=== PATIENT | female | born 1975 | race Caucasian/White ===

== ENCOUNTER 2017-02-07 11:30 | Emergency (ER) | payer OTHER ==
[2017-02-07 12:03] VITALS: BP 128/74
--- NOTE | 2017-02-07 13:07 | UC ---
Back Pain HPI - HPI Summary HPI Summary: SLIPPED ON THE STAIRS THIS MORNING AND FELL DOWN 3 STEPS LANDING ON HER MID BACK. POSSIBLY HIT HER HEAD BUT NO LOC. NOW HAS BACK, SHOULDER, NECK PAIN AND ORTEZ. NO VISUAL DISTURBANCE. TOOK A FIORICET WITH NO HELP. HAD EMESIS X 1 ABOUT 20 MINUTES AFTER THE FALL. HAS SOME PHOTOPHOBIA. - History of Current Complaint Chief Complaint: UCHeadInjury Stated Complaint: FALL-POSS HIT HEAD HAS ORTEZ,LFT SHOULDER/BACK PAIN Time Seen by Provider: 02/07/17 12:46 Hx Obtained From: Patient, Family/Gluten Settling Tender - MOM Hx Last Menstrual Period: hasn't had since september had tubal Onset/Duration: Sudden Onset, Lasting Hours, Still Present Timing: Constant Severity Initially: Moderate Severity Currently: Moderate Pain Intensity: 5 Pain Scale Used: 0-10 Numeric Back Pain: Is Discrete @ Character: Aching, Spasmodic, Stiffness Aggravating: Movement Alleviating: Rest Associated Signs And Symptoms: Positive: Negative - Allergies/Home Medications Allergies/Adverse Reactions: Allergies Allergy/AdvReac Type Severity Reaction Status Date / Time Sulfa Drugs Allergy Severe Hives Verified 02/07/17 11:46 Azithromycin [From Zithromax] Allergy Intermediate Hives Verified 02/07/17 11:46 Ibuprofen AdvReac Intermediate See Comment Verified 02/07/17 11:46 Home Medications: Home Medications Certolizumab Pegol [Cimzia] 2 inj MONTHLY 02/07/17 [History Confirmed 02/07/17] Mercaptopurine TAB* [Purinethol TAB*] 1 tab DAILY 02/07/17 [History Confirmed ] Zolpidem CR (NF) [Ambien CR (NF)] 12.5 mg PO BEDTIME 02/07/17 [History Confirmed 02/07/17] PMH/Surg Hx/FS Hx/Imm Hx Endocrine History Of: Denies: Diabetes Cardiovascular History Of: Denies: Cardiac Disorders Respiratory History Of: Denies: Asthma - Surgical History Surgical History: Yes Surgery Procedure, Year, and Place: Hysterectomy (still has right tube and ovary ), Appendectomy, Bowel Resection, 07/29/14, [place], breast reduction, tubal ligation - Family History Known Family History: Positive: Diabetes, Other - CANCER - Social History Alcohol Use: Occasionally Substance Use Type: None Smoking Status (MU): Former Smoker Type: Cigarettes Amount Used/How Often: 1 PPD Length of Time of Smoking/Using Tobacco: 10 Years Have You Smoked in the Last Year: No When Did the Patient Quit Smoking/Using Tobacco: 2009 - Immunization History Most Recent Influenza Vaccination: MAY 2016 Most Recent Tetanus Shot: UTD Most Recent Pneumonia Vaccination: NONE Review of Systems Skin: Negative Respiratory: Negative Cardiovascular: Negative Gastrointestinal: Negative Musculoskeletal: Myalgia Neurological: Headache All Other Systems Reviewed And Are Negative: Yes Physical Exam Triage Information Reviewed: Yes Appearance: Well-Appearing, Well-Nourished, Pain Distress - MILD Vital Signs: Initial Vital Signs Temp 98.1 F 02/07/17 11:53 Pulse 75 02/07/17 11:53 Resp 16 02/07/17 11:53 BP 128/74 02/07/17 11:53 Pulse Ox 98 02/07/17 11:53 Eyes: Positive: Conjunctiva Clear ENT: Positive: Hearing grossly normal Neck: Positive: Supple Respiratory: Positive: No respiratory distress, No accessory muscle use Cardiovascular: Positive: Pulses Normal Abdomen Description: Positive: Soft Musculoskeletal: Positive: No Edema, ROM Limited @ - BACK Neurological: Positive: Alert Psychological: Positive: Normal Response To Family, Age Appropriate Behavior Skin: Negative: rashes Back Pain Course/Dx - Differential Dx/Diagnosis Provider Diagnoses: 1. ACUTE THORACIC BACK STRAIN. 2. HEAD INJURY Discharge - Discharge Plan Condition: Stable Disposition: HOME Prescriptions: Naproxen [Naproxen EC] 500 mg PO BID PRN #30 tab PRN Reason: Pain Patient Education Materials: Head Injury (ED), Thoracic Back Strain (ED) Referrals: Alma Foley [Primary Care Provider] - If Needed Additional Instructions: LIKELY MUSCULOSKELETAL PAIN FROM YOUR FALL. THIS KIND OF PAIN IS TYPICALLY AT IT 'S WORST IN THE FIRST FEW DAYS AFTER THE INJURY AND SHOULD IMPROVE OVER THE NEXT SEVERAL DAYS. REST, STRETCH, CONTINUE YOUR MUSCLE RELAXER PRESCRIBED. WILL GIVE PRESCRIPTION STRENGTH NAPROSYN. USE SPARINGLY GIVEN YOUR DIAGNOSIS OF CROHNS. POSSIBLE CONCUSSION - GO TO THE ER WITHOUT FAIL IF YOU DEVELOP UNEQUAL PUPILS, VISUAL DISTURBANCE, GAIT INSTABILITY, SPEECH DIFFICULTY, NAUSEA/VOMITING, WORSENING HEADACHE, DIZZINESS, CONFUSION, WEAKNESS OR ANY OTHER CONCERNING SYMPTOMS.
== END 2017-02-07 13:21 | disposition home or self-care (01) ==
LOC: UCCORT 11:30
DX: S29.012A Strain of muscle and tendon of back wall of thorax, initial encounter (principal); S09.90XA Unspecified injury of head, initial encounter; W10.9XXA Fall (on) (from) unspecified stairs and steps, initial encounter; Y92.9 Unspecified place or not applicable; Z87.891 Personal history of nicotine dependence; Z88.1 Allergy status to other antibiotic agents; Z88.2 Allergy status to sulfonamides; Z88.6 Allergy status to analgesic agent
CPT/HCPCS: 99212; G0463

== ENCOUNTER 2017-03-07 11:40 | Emergency (ER) | payer OTHER ==
[2017-03-07 12:55] VITALS: BP 121/87
[2017-03-07] MEDS ORDERED: Ondansetron ODT TAB* 4 MG PO ONE (13:16)
--- NOTE | 2017-03-07 13:16 | UC ---
Throat Pain/Nasal Misha HPI - HPI Summary HPI Summary: 41 yo female with sore throat/mackey and fever x 3 days nausea no v/d - History of Current Complaint Chief Complaint: UCRespiratory Stated Complaint: SORE THROAT,FEVER,COUGH Time Seen by Provider: 03/07/17 12:51 Hx Obtained From: Patient Hx Last Menstrual Period: hasn't had since september had tubal Onset/Duration: Gradual Onset, Lasting Days Severity: Moderate Pain Intensity: 5 Pain Scale Used: 0-10 Numeric Cough: None Associated Signs & Symptoms: Positive: Sinus Discomfort, Nasal Discharge, Fever - Allergies/Home Medications Allergies/Adverse Reactions: Allergies Allergy/AdvReac Type Severity Reaction Status Date / Time Sulfa Drugs Allergy Severe Hives Verified 03/07/17 12:48 Azithromycin [From Zithromax] Allergy Intermediate Hives Verified 03/07/17 12:48 Ibuprofen AdvReac Intermediate See Comment Verified 03/07/17 12:48 Home Medications: Home Medications Chlorpheniramine & Phenylephri [Sinus & Allergy PE Maximu] 1 tab PO ONCE PRN [History Confirmed 03/07/17] PMH/Surg Hx/FS Hx/Imm Hx Previously Healthy: Yes GI/ History: Other Other GI/ History: Crohn's Disease - Surgical History Surgical History: Yes Surgery Procedure, Year, and Place: Hysterectomy (still has right tube and ovary ), Appendectomy, Bowel Resection, 07/29/14, [place]. [place], breast reduction, tubal ligation - Family History Known Family History: Positive: Diabetes, Other - CANCER - Social History Alcohol Use: Occasionally Substance Use Type: None Smoking Status (MU): Former Smoker Type: Cigarettes Amount Used/How Often: 1 PPD Length of Time of Smoking/Using Tobacco: 10 Years Have You Smoked in the Last Year: No When Did the Patient Quit Smoking/Using Tobacco: 2009 - Immunization History Most Recent Influenza Vaccination: May 2014 Most Recent Tetanus Shot: UTD Most Recent Pneumonia Vaccination: NONE Review of Systems Constitutional: Fever, Chills Skin: Negative Eyes: Negative ENT: Sore Throat, Nasal Discharge Respiratory: Negative Cardiovascular: Negative Gastrointestinal: Negative Genitourinary: Negative Motor: Negative Neurovascular: Negative Musculoskeletal: Negative Neurological: Headache Psychological: Negative All Other Systems Reviewed And Are Negative: Yes Physical Exam Triage Information Reviewed: Yes Appearance: Well-Appearing, No Pain Distress, Well-Nourished Vital Signs: Initial Vital Signs Temp 100.8 F 03/07/17 12:51 Pulse 97 03/07/17 12:51 Resp 16 03/07/17 12:51 BP 121/87 03/07/17 12:51 Pulse Ox 98 03/07/17 12:51 Vital Signs Reviewed: Yes Eyes: Positive: Conjunctiva Clear ENT: Positive: Hearing grossly normal, Pharyngeal erythema, Nasal congestion, Other: - bilat max sinus tenderness. Negative: Nasal drainage, TMs normal, TM bulging, TM dull, TM red, Tonsillar swelling, Tonsillar exudate, Trismus, Muffled/hoarse voice Neck: Positive: Supple, Enlarged Nodes @ - anterior cervical Respiratory: Positive: Lungs clear, Normal breath sounds, No respiratory distress, No accessory muscle use Cardiovascular: Positive: RRR, No Murmur, Pulses Normal Musculoskeletal: Positive: ROM Intact, No Edema Neurological: Positive: Alert, Muscle Tone Normal Psychological Exam: Normal Skin Exam: Normal Throat Pain/Nasal Course/Dx - Differential Dx/Diagnosis Provider Diagnoses: acute tonsillitis/sinusitis Discharge - Discharge Plan Condition: Stable Disposition: HOME Prescriptions: Amoxicillin (*) [Amoxicillin 875 MG (*)] 875 mg PO BID #20 tab Fluconazole 150 MG (NF) [Diflucan 150 mg (NF)] 150 mg PO ONCE #1 tab Patient Education Materials: Sinusitis (ED), Tonsillitis (ED) Forms: *Gen. Provider Communication, *Work Release Referrals: Alma Foley [Primary Care Provider] - 3 Days (if not better) Additional Instructions: strep test (-)
== END 2017-03-07 13:32 | disposition home or self-care (01) ==
LOC: UCCORT 11:40
DX: J03.90 Acute tonsillitis, unspecified (principal); J32.9 Chronic sinusitis, unspecified; K50.90 Crohn's disease, unspecified, without complications; Z90.710 Acquired absence of both cervix and uterus; Z90.49 Acquired absence of other specified parts of digestive tract; Z88.6 Allergy status to analgesic agent; Z88.1 Allergy status to other antibiotic agents; Z88.2 Allergy status to sulfonamides; Z87.891 Personal history of nicotine dependence
CPT/HCPCS: 87651; 99212; A9270-GY; G0463

== ENCOUNTER 2017-11-12 13:45 | Emergency (ER) | payer OTHER ==
[2017-11-12 15:20] VITALS: BP 120/71
--- NOTE | 2017-11-12 15:50 | UC ---
Eye Complaint HPI - HPI Summary HPI Summary: 1 WEEK OF RIGHT EYE REDNESS, PAIN, SENSITIVITY TO LIGHT. VISION IS BLURRY. HAS A ORTEZ. ALSO C/O SINUS PRESSURE. NO FEVER, CHILLS. TAKES IMMUNO SUPPRESSIVE MEDS. - History of Current Complaint Chief Complaint: UCRespiratory Stated Complaint: SINUES,EYES Time Seen by Provider: 11/12/17 15:18 Hx Obtained From: Patient Hx Last Menstrual Period: hasn't had since september had tubal Onset/Duration: Gradual Onset, Lasting Days, Still Present Timing: Constant Severity Initially: Moderate Severity Currently: Moderate Pain Intensity: 2 Pain Scale Used: 0-10 Numeric Location of Injury: Conjunctiva Aggravating Factor(s): Light Alleviating Factor(s): Nothing Associated Signs And Symptoms: Positive: Photophobia, Vision Impairment Right - Allergies/Home Medications Allergies/Adverse Reactions: Allergies Allergy/AdvReac Type Severity Reaction Status Date / Time Sulfa (Sulfonamide Allergy Severe Hives Verified 11/12/17 15:12 Antibiotics) azithromycin [From Zithromax] Allergy Intermediate Hives Verified 11/12/17 15:12 ibuprofen Allergy See Comment Verified 11/12/17 15:12 PMH/Surg Hx/FS Hx/Imm Hx Other GI/ History: CROHNS - Surgical History Surgical History: Yes Surgery Procedure, Year, and Place: Hysterectomy (still has right tube and ovary ), Appendectomy, Bowel Resection, 07/29/14, [place]. [place], breast reduction, tubal ligation - Family History Known Family History: Positive: Diabetes, Other - CANCER - Social History Alcohol Use: Occasionally Substance Use Type: None Smoking Status (MU): Former Smoker Type: Cigarettes Amount Used/How Often: 1 PPD Length of Time of Smoking/Using Tobacco: 10 Years Have You Smoked in the Last Year: No When Did the Patient Quit Smoking/Using Tobacco: 2009 - Immunization History Most Recent Influenza Vaccination: May 2014 Most Recent Tetanus Shot: UTD Most Recent Pneumonia Vaccination: NONE Review of Systems Constitutional: Negative Eyes: Blurred Vision, Drainage, Eye Redness, Photophobia ENT: Nasal Discharge, Sinus Congestion, Sinus Pain/Tenderness Respiratory: Cough Cardiovascular: Negative Gastrointestinal: Negative Genitourinary: Negative Neurological: Headache All Other Systems Reviewed And Are Negative: Yes Physical Exam Triage Information Reviewed: Yes Appearance: Well-Nourished, Pain Distress - MOD Vital Signs: Initial Vital Signs Temp 98.3 F 11/12/17 15:15 Pulse 80 11/12/17 15:15 BP 120/71 11/12/17 15:15 Pulse Ox 99 11/12/17 15:15 Vital Signs Reviewed: Yes Eyes: Positive: Conjunctiva Inflamed - RIGHT, Other: - PERRL, EOMI, VERY SENSITIVE TO LIGHT. UNABLE TO OPEN EYE EASILY IN EXAM ROOM. Negative: Discharge ENT: Positive: Hearing grossly normal, Pharynx normal, TMs normal Neck: Positive: Supple, Nontender, No Lymphadenopathy Respiratory Exam: Normal Cardiovascular Exam: Normal Abdomen Description: Positive: Soft Musculoskeletal: Positive: No Edema Neurological: Positive: Alert Psychological: Positive: Age Appropriate Behavior Skin: Negative: rashes Eye Complaint Course/Dx - Differential Dx/Diagnosis Provider Diagnoses: 1. SINUSITIS. 2. RIGHT EYE PAIN/REDNESS Discharge - Discharge Plan Condition: Stable Disposition: HOME Prescriptions: Doxycycline Monohydrate [Doxycycline Monohydrate] 1 cap PO BID #20 cap Fluconazole [Diflucan] 1 tab PO ONCE #2 tab Patient Education Materials: Sinusitis (ED), Blurred Vision (ED), Eye Pain (ED) Referrals: Alma Foley [Primary Care Provider] - If Needed Additional Instructions: YOUR SINUS SYMPTOMS MAY BE VIRALLY MEDIATED BUT GIVEN YOUR IMMUNOSUPPRESSED STATE WILL COVER WITH ANTIBIOTICS. IF YOU START THE MEDICINE BE SURE TO TAKE IT FOR THE FULL COURSE. TAKE WITH FOOD TO HELP PREVENT GI UPSET AND AVOID PROLONGED EXPOSURE TO UV RAYS. FOR YOUR EYE GO DIRECTLY TO [facility] FROM HERE FOR FURTHER EVALUATION.
== END 2017-11-12 16:02 | disposition home or self-care (01) ==
LOC: UCCORT 13:45
DX: J32.9 Chronic sinusitis, unspecified (principal); H57.11 Ocular pain, right eye; H57.8 Other specified disorders of eye and adnexa; Z87.891 Personal history of nicotine dependence; K50.90 Crohn's disease, unspecified, without complications
CPT/HCPCS: 99212; G0463

== ENCOUNTER 2018-02-01 13:00 | Emergency (ER) | payer SELFPAY ==
[2018-02-01 15:13] VITALS: BP 151/85
--- NOTE | 2018-02-01 15:36 | UC ---
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 Handles broke and back twisted. Pain has worsened since then. Last back injury "years ago". Occasional mild low back pain after hard days. Very different than this pain. - History of Current Complaint Chief Complaint: UCBackPain Stated Complaint: BACK COMPLAINT Hx Obtained From: Patient Hx Last Menstrual Period: hasn't had since september had tubal ?: No Onset/Duration: Sudden Onset, Lasting Days - 3, Worse Since - onset Timing: Constant Severity Initially: Mild Severity Currently: Moderate Pain Intensity: 5 Back Pain: Is Discrete @ - left lower back., Radiates To - down buttocks. Character: Sharp Aggravating Factor(s): Bending - and sitting Alleviating Factor(s): Rest, Position Associated Signs And Symptoms: Positive: Numbness - down the leg. Negative: Weakness, Bladder Incontinence, Bowel Incontinence Related History: Occupational Injury - Allergies/Home Medications Allergies/Adverse Reactions: Allergies Allergy/AdvReac Type Severity Reaction Status Date / Time Sulfa (Sulfonamide Allergy Severe Hives Verified 11/12/17 15:12 Antibiotics) azithromycin [From Zithromax] Allergy Intermediate Hives Verified 11/12/17 15:12 ibuprofen Allergy See Comment Verified 11/12/17 15:12 Home Medications: Home Medications Acetaminophen [Acetaminophen Extra Strength] 1,000 mg PO Q6HR PRN 02/01/18 [ History Confirmed 02/01/18] Colestipol HCl 300 gm PO DAILY 02/01/18 [History Confirmed 02/01/18] Naproxen Sodium [Aleve] 220 mg PO BID PRN 02/01/18 [History Confirmed 02/01/18] Steroid For Crohns-Budesinide? 2 tab PO DAILY 02/01/18 [History Confirmed ] PMH/Surg Hx/FS Hx/Imm Hx Other GI/ History: Crohn's Other Neurological History: chronic headaches. - Surgical History Surgical History: Yes Surgery Procedure, Year, and Place: Hysterectomy (still has right tube and ovary ), Appendectomy, Bowel Resections x 2: 07/29/14and 2014 [place]. [place], breast reduction, tubal ligation - Family History Known Family History: Positive: Cardiac Disease, Diabetes, Other - CANCER - Social History Occupation: Employed Full-time Lives: With Family Alcohol Use: Occasionally Substance Use Type: None Smoking Status (MU): Former Smoker Type: Cigarettes Amount Used/How Often: 1 PPD Length of Time of Smoking/Using Tobacco: 10 Years Have You Smoked in the Last Year: No When Did the Patient Quit Smoking/Using Tobacco: 2009 - Immunization History Most Recent Influenza Vaccination: May 2014 Most Recent Tetanus Shot: UTD Most Recent Pneumonia Vaccination: NONE Review of Systems Musculoskeletal: Arthralgia - left lower back. Is Patient Immunocompromised?: Yes All Other Systems Reviewed And Are Negative: Yes Physical Exam Triage Information Reviewed: Yes Appearance: Well-Appearing, Well-Nourished, Pain Distress - with movement Vital Signs: Initial Vital Signs Temp 98.6 F 02/01/18 15:03 Pulse 74 02/01/18 15:03 Resp 18 02/01/18 15:03 BP 151/85 02/01/18 15:03 Pulse Ox 99 02/01/18 15:03 Vital Signs Reviewed: Yes Eyes: Positive: Conjunctiva Clear Neck exam: Normal Respiratory Exam: Normal Cardiovascular Exam: Normal Musculoskeletal: Positive: ROM Limited @ - lumbosacral spine, Other: - tenderness at the left SI joint. Neurological: Positive: Other: - DTR 2+ patella and achilles. Sharp sensation decreased along the L4 dermatome. Psychological Exam: Normal Skin Exam: Normal Diagnostics - Radiology No standard instances Xray Interpretation: Positive (See Comments) - L3L4 DDD Radiology Interpretation Completed By: ED Physician Back Pain Course/Dx - Differential Dx/Diagnosis Differential Diagnosis/HQI/PQRI: Arthritis, Herniated Disc, Strain, Sprain Provider Diagnoses: Acute sacroiliitis. Lumbar radiculopathy Discharge - Sign-Out/Discharge Documenting (check all that apply): Discharge/Admit/Transfer - Discharge Plan Condition: Stable Disposition: HOME Patient Education Materials: Sacroiliitis (ED), Lumbar Radiculopathy (ED) Referrals: Alma Foley [Primary Care Provider] - 2 Days Additional Instructions: Please see a chiropractor tomorrow. Do extension exercises if you can. - Billing Disposition and Condition Condition: STABLE Disposition: HOME
--- NOTE | 2018-02-01 16:09 | RAD ---
HISTORY: L4 radiculopathy COMPARISONS: None VIEWS: 5 , Frontal, lateral, coned-down lateral sacral, and bilateral oblique views of the lumbar spine. FINDINGS: ALIGNMENT: The alignment is normal. VERTEBRAL BODIES: There is mild anterolateral marginal osteophyte formation. JOINTS: There is mild facet hypertrophic change. INTERVERTEBRAL DISCS: There is diffuse loss of intervertebral disc height. SOFT TISSUE: Unremarkable. OTHER: The pelvis is unremarkable. The lung bases are clear. IMPRESSION: MILD DEGENERATIVE DISC DISEASE AND OSTEOARTHRITIS.
== END 2018-02-01 16:18 | disposition home or self-care (01) ==
LOC: UCCORT 13:00
DX: M46.1 Sacroiliitis, not elsewhere classified (principal); M54.16 Radiculopathy, lumbar region; Z88.6 Allergy status to analgesic agent; Z88.1 Allergy status to other antibiotic agents; Z88.2 Allergy status to sulfonamides; F17.210 Nicotine dependence, cigarettes, uncomplicated
CPT/HCPCS: 72110; 99212; G0463

== ENCOUNTER 2018-10-20 15:18 | Emergency (ER) | payer OTHER ==
[2018-10-20 15:38] VITALS: BP 137/91
--- NOTE | 2018-10-20 15:43 | UC ---
UC General HPI - HPI Summary HPI Summary: pt is c/o a 2-3 week hx of worsening sinus pain, pressure, congestion and purulent drainage. - History of Current Complaint Chief Complaint: UCGeneralIllness Stated Complaint: SINUS CONCERN Time Seen by Provider: 10/20/18 15:35 Hx Obtained From: Patient Hx Last Menstrual Period: hasn't had since september had tubal Onset/Duration: Gradual Onset Timing: Constant Pain Intensity: 3 Associated Signs & Symptoms: Negative: Fever, Headache - Allergy/Home Medications Allergies/Adverse Reactions: Allergies Allergy/AdvReac Type Severity Reaction Status Date / Time Sulfa (Sulfonamide Allergy Severe Hives Verified 10/20/18 15:38 Antibiotics) azithromycin [From Zithromax] Allergy Intermediate Hives Verified 10/20/18 15:38 ibuprofen Allergy See Comment Verified 10/20/18 15:38 PMH/Surg Hx/FS Hx/Imm Hx - Additional Past Medical History Additional PMH: crohn's disease, mm spasms - Surgical History Surgical History: Yes Surgery Procedure, Year, and Place: Hysterectomy (still has right tube and ovary ), Appendectomy, Bowel Resections x 2: 07/29/14and 2014 [place]. [place], breast reduction, tubal ligation - Family History Known Family History: Positive: Cardiac Disease, Diabetes, Other - CANCER - Social History Alcohol Use: Occasionally Substance Use Type: None Smoking Status (MU): Former Smoker Type: Cigarettes Amount Used/How Often: 1 PPD Length of Time of Smoking/Using Tobacco: 10 Years Have You Smoked in the Last Year: No When Did the Patient Quit Smoking/Using Tobacco: 2009 - Immunization History Most Recent Influenza Vaccination: May 2014 Most Recent Tetanus Shot: UTD Most Recent Pneumonia Vaccination: NONE Review of Systems All Other Systems Reviewed And Are Negative: Yes Constitutional: Positive: Negative Skin: Positive: Negative Eyes: Positive: Negative ENT: Positive: Nasal Discharge, Sinus Congestion, Sinus Pain/Tenderness Respiratory: Positive: Negative Cardiovascular: Positive: Negative Gastrointestinal: Negative: Vomiting, Diarrhea Genitourinary: Positive: Negative Motor: Positive: Negative Neurovascular: Positive: Negative Musculoskeletal: Positive: Negative Neurological: Positive: Negative Psychological: Positive: Negative Is Patient Immunocompromised?: No Physical Exam Triage Information Reviewed: Yes Appearance: Well-Appearing Vital Signs: Initial Vital Signs Temp 97.5 F 10/20/18 15:35 Pulse 80 10/20/18 15:35 Resp 14 10/20/18 15:35 BP 137/91 10/20/18 15:35 Pulse Ox 98 10/20/18 15:35 Vital Signs Reviewed: Yes Eyes: Positive: Conjunctiva Clear ENT: Positive: Pharynx normal, Nasal congestion, Nasal drainage - green, TMs normal, Sinus tenderness Neck: Positive: Supple, Nontender, No Lymphadenopathy Respiratory: Positive: Lungs clear, Normal breath sounds Cardiovascular: Positive: RRR, No Murmur Abdomen Description: Positive: Nontender, No Organomegaly, Soft Bowel Sounds: Positive: Present Musculoskeletal: Positive: ROM Intact Neurological: Positive: Alert Psychological: Positive: Age Appropriate Behavior Skin Exam: Normal Course/Dx - Diagnoses Provider Diagnosis: Sinusitis Discharge - Sign-Out/Discharge Documenting (check all that apply): Patient Departure All imaging exams completed and their final reports reviewed: No Studies - Discharge Plan Condition: Stable Disposition: HOME Prescriptions: Amoxicillin/Clavulanate TAB* [Augmentin TAB 875*] 875 mg PO BID 10 Days #20 tab Patient Education Materials: Sinusitis (ED) Referrals: Alma Foley [Primary Care Provider] - 7 Days - Billing Disposition and Condition Condition: STABLE Disposition: Home - Attestation Statements Provider Attestation: I was available for consult. This patient was seen by the [facility]. The patient was not presented to, seen by, or examined by me. -Denys
== END 2018-10-20 15:47 | disposition home or self-care (01) ==
LOC: UCCORT 15:18
DX: J32.9 Chronic sinusitis, unspecified (principal); Z88.1 Allergy status to other antibiotic agents; Z88.2 Allergy status to sulfonamides; Z88.8 Allergy status to other drugs, medicaments and biological substances; Z87.891 Personal history of nicotine dependence
CPT/HCPCS: 99212; G0463